=== PATIENT | female | born 1980 | race Caucasian/White ===

== ENCOUNTER 2016-12-26 05:58 | Emergency (ER) | payer SELFPAY ==
[2016-12-26 06:06] VITALS: BP 156/105; PULSE 64; TEMP 97.6; BMI 33.8
[2016-12-26] MEDS ORDERED: KETOROLAC TROMETHAMINE 60 MG/2 ML VIAL IM ONE (06:12)
[2016-12-26] MEDS ORDERED: KETOROLAC TROMETHAMINE 60 MG/2 ML VIAL ONE (06:13)
--- NOTE | 2016-12-26 06:19 | PDOC ---
History of Present Illness - General Chief Complaint: Pain, Acute Stated Complaint: WOKE UP WITH STIFF NECK 10 DAYS AGO Time Seen by Provider: 12/26/16 06:04 - History of Present Illness Initial Comments: This 36-year-old woman, 12 weeks , presents with 10 day history of progressive right-sided neck stiffness. Patient states that she awakened after "sleeping wrong way" ; since then, she has had pain with movement of her neck and right shoulder. The last few days, she has had pain in her right arm. She denies paresthesias/numbness/muscle weakness. The patient has previous history of neck muscles strain/spasm. This occurred a few years ago and resolved after nonsteroidal anti-inflammatory medications along with muscle relaxants. Patient subsequently went to a chiropractor and did not have recurrence until the past 10 days. Patient states that she is currently breast-feeding and uses her right arm exclusively to hold her baby. She has not taken any medications because of her breast feeding. She had been taking yoga classes during the period but has not been stretching or perform a year ago since of her child. Patient denies any other medical problems. She has an appointment with her general doctor on Monday, December 30.. Past History - Past Medical History Allergies/Adverse Reactions: Allergies Allergy/AdvReac Type Severity Reaction Status Date / Time No Known Allergies Allergy Verified 12/26/16 06:00 Home Medications: Ambulatory Orders Diclofenac Sodium 75 mg PO BID PRN #20 tablet. 12/26/16 Tizanidine HCl [Zanaflex (Nf) -] 2 mg PO TID PRN #12 tablet 12/26/16 Other medical history: POST 3 MONTHS - Psycho/Social/Smoking Cessation Hx Anxiety: No Suicidal Ideation: No Smoking History: Never smoked Have you smoked in the past 12 months: No Information on smoking cessation initiated: No Hx Alcohol Use: No Drug/Substance Use Hx: No Substance Use Type: None Review of Systems - Review of Systems Able to Perform ROS?: Yes Comments:: 12 point review of systems is negative except for what is noted in the history of present illness *Physical Exam - Vital Signs Last Vital Signs Temp Pulse Resp BP Pulse Ox 97.6 F 64 16 156/105 99 12/26/16 06:01 12/26/16 06:01 12/26/16 06:01 12/26/16 06:01 12/26/16 06:01 - Physical Exam Comments: GENERAL: Adult female, alert and oriented 3, holding neck stiffly but in no acute distress. HEAD: Normal with no signs of trauma. NECK: Pain with flexion of neck and lateral rotation to the right but no meningismus; mild tenderness of right trapezius muscle Reproduction of pain with lateral rotation of her head and abduction of right arm No masses/JVD/bruits EXTREMITIES: Normal range of motion, no edema. No clubbing or cyanosis. No erythema, or tenderness. NEUROLOGICAL: Cranial nerves II through XII grossly intact. Normal speech. No focal neurological deficits. MUSCULOSKELETAL: Back non-tender to palpation, no CVA tenderness SKIN: Warm, Dry, normal turgor, no rashes or lesions noted. Medical Decision Making - Medical Decision Making This 36-year-old woman who is currently breast-feeding her 12-week-old , presents with 10 day progressive course of neck pain/stiffness. Patient has a history of neck/upper back spasms and strain. Patient has not taken any medications for this currently because of her breast feeding. On exam, she has evidence of muscle spasm of the right trapezius muscle as well as the paracervical muscles on the right side. No other motor or sensory deficits present. Patient has frozen breast milk supply of approximately 2 weeks. Patient will receive 60 mg of Toradol IM now. She will refrain from breast- feeding today. Prescriptions for diclofenac 75 mg twice a day as well as tizanidine muscle relaxant 2 mg up to 3 times a day will be transmitted to her pharmacy. She should take these over the next couple days as well as use local warmth to the right side of her neck and right shoulder/upper back area. During the time that she is taking the nonsteroidal anti-inflammatory and muscle relaxant, she should not breast-feed. Patient has appointment with her PMD, Dr. Taylor in 4 days. Her PMD will also give her recommendations for chiropractic physician by telephone in the next few days. The patient should return to the emergency room if she has worsening pain/neck stiffness. *DC/Admit/Observation/Transfer Diagnosis at time of Disposition: Muscle strain of right upper back Qualifiers: Encounter type: initial encounter Qualified Code(s): S29.012A - Strain of muscle and tendon of back wall of thorax, initial encounter - Discharge Dispostion Condition at time of disposition: Stable - Prescriptions Prescriptions: Diclofenac Sodium 75 mg PO BID PRN #20 tablet. PRN Reason: Moderate Pain Tizanidine HCl [Zanaflex (Nf) -] 2 mg PO TID PRN #12 tablet PRN Reason: Muscle Spasms - Referrals Referrals: Kaylen Taylor [Primary Care Provider] - - Patient Instructions Printed Discharge Instructions: Muscle Strain Additional Instructions: Diclofenac 75 mg twice a day as needed (take with food) Zanaflex 2 mg up to 3 times a day as needed for muscle spasms Local warmth to area of pain/muscle spasms Drink plenty of water Follow-up with your general doctor on Monday as scheduled Return to ER if you have worsening pain
== END 2016-12-26 06:27 | disposition home or self-care (01) ==
LOC: FER 05:58
PROC: 3E0233Z Introduction of Anti-inflammatory into Muscle, Percutaneous Approach (ICD-10-PCS; principal; 2016-12-26)
DX: S29.012A Strain of muscle and tendon of back wall of thorax, initial encounter (principal); X58.XXXA Exposure to other specified factors, initial encounter; Y93.89 Activity, other specified; Y92.9 Unspecified place or not applicable
CPT/HCPCS: 99281-25